=== PATIENT | male | born 1940 | race Two or more races ===

== ENCOUNTER 2025-02-15 02:30 | Inpatient (IN) | payer MEDICARE ==
[2025-02-15] VITALS (12 sets, daily range): BP systolic 93–160; BP diastolic 56–75; TEMP 97.3–97.8; O2SAT 98–99
[~2025-02-15] VITALS: Ht 172.7 cm; Wt 60.8 kg
[2025-02-15 03:51] LABS: CALCIUM, SERUM 8.8 mg/dL (8.5-10.1); CREATININE 3.5 mg/dL (0.6-1.3); SODIUM SERUM 135.0 mmol/L (136-145)
[2025-02-15 03:56] LABS: PLATELET COUNT (AUTO) 308 K/uL (150-450); RED BLOOD CELL COUNT(AUTO) 2.74 MIL/uL (4.5-6.0); RED CELL DISTRIBUTION WIDTH 24.4 % (11.5-15.0); WHITE BLOOD COUNT (AUTO) 11.7 K/uL (4.3-11.0)
[2025-02-15 03:59] LABS: LACTIC ACID 1.6 mmol/L (0.4-2.0)
[2025-02-15 04:03] LABS: ASPARTATE AMINOTRANSFERASE 14.0 U/L (15-37); NT-PRO BNP 23454.0 pg/mL (0-125); TOTAL PROTEIN, SERUM 6.4 g/dL (6.4-8.2); UREA NITROGEN, BLOOD 87.0 mg/dL (7-18)
[2025-02-15 04:08] LABS: APPEARANCE,URINE TURBID (CLEAR); BLOOD, URINE 1+ Ery/uL (NEGATIVE); LEUKOCYTE ESTERASE ,URINE 1+ (NEGATIVE); NITRITE, URINE NEGATIVE (NEGATIVE); UGLUCOSE TRACE mg/dL (NEGATIVE)
[2025-02-15 04:11] LABS: ADD URINE CULTURE YES; SQUAMOUS EPITHELIAL CELL,UR Moderate /HPF (None Seen); URINE AMORPHOUS URATE Many /HPF (None Seen)
[2025-02-15 04:35] LABS: BASOPHILS % (MANUAL) 0 % (0.0-2.0); EOSINOPHILS % (MANUAL) 0 % (0-4); LYMPHOCYTES % (MANUAL) 6 % (16-48); MONOCYTES % (MANUAL) 5 % (0-11.0); NEUTROPHILS % (MANUAL) 89 (42-76); PLATELET ESTIMATE ADEQUATE
[2025-02-15 05:56] LABS: IRON, SERUM 9 ug/dl (50-175)
[2025-02-15] MEDS ORDERED: ONDANSETRON HCL/PF 4 MG/2 ML VIAL IVP PRN (06:30)
[2025-02-15 07:33] LABS: IRON, SERUM 8.0 ug/dl (50-175)
[2025-02-15 08:19] LABS: ASPARTATE AMINOTRANSFERASE 12.0 U/L (15-37); CALCIUM, SERUM 8.6 mg/dL (8.5-10.1); CREATININE 3.7 mg/dL (0.6-1.3); PHOSPHORUS 4.4 mg/dL (2.5-4.9); SODIUM SERUM 137.0 mmol/L (136-145); TOTAL PROTEIN, SERUM 6.0 g/dL (6.4-8.2)
[2025-02-15 08:21] LABS: PLATELET COUNT (AUTO) 292 K/uL (150-450); RED BLOOD CELL COUNT(AUTO) 2.64 MIL/uL (4.5-6.0); RED CELL DISTRIBUTION WIDTH 24.0 % (11.5-15.0); WHITE BLOOD COUNT (AUTO) 10.6 K/uL (4.3-11.0)
[2025-02-15 08:27] LABS: UREA NITROGEN, BLOOD 92.0 mg/dL (7-18)
[2025-02-15] MEDS: ACETAMINOPHEN 325 MG TABLET PO ONE (09:11)
[2025-02-15 09:12] LABS: PLATELET ESTIMATE DECREASED
[2025-02-15] MEDS: LORATADINE 10 MG TABLET PO ONE (09:12)
[2025-02-15] MEDS: PANTOPRAZOLE 40 MG VIAL IV SCH (09:13)
[2025-02-15] MEDS: PANTOPRAZOLE 40 MG TABLET.DR PO SCH (10:30)
[2025-02-15] MEDS: LACTULOSE 10 G/15 ML UDC (PYXIS) PO ONE (11:20)
[2025-02-15] MEDS: POLYETHYLENE GLYCOL 3350 17 GM POWD.PACK PO ONE (11:20)
[2025-02-15] MEDS: DOCUSATE SODIUM 100 MG CAPSULE PO SCH (11:21)
[2025-02-15] MEDS: THERAHONEY GEL 1.5 OZ TUBE TP SCH (11:31)
[2025-02-15] MEDS: HYDROCODONE/APAP 5/325MG TABLET PO PRN (12:22)
[2025-02-15] MEDS: CEFTRIAXONE 1 G in IV D5W 50 ML IV SCH (12:28)
[2025-02-15] MEDS: BISACODYL SUPP (10 MG) 10 MG/SUPP.RECT SUPP.RECT RC ONE (13:30)
[2025-02-15 13:49] LABS: APPEARANCE,URINE SLIGHTLY CLOUDY (CLEAR); BLOOD, URINE 1+ Ery/uL (NEGATIVE); LEUKOCYTE ESTERASE ,URINE 1+ (NEGATIVE); NITRITE, URINE NEGATIVE (NEGATIVE); UGLUCOSE NEGATIVE (NEGATIVE)
[2025-02-15 13:55] LABS: CREATININE, URINE 84.3 MG/DL (30.0-125.0); URINE SODIUM, RANDOM 5.0 mmol/l (40-220); URINE TOTAL PROTEIN 395.9 mg/dL (0-11.9)
[2025-02-15 14:01] LABS: YEAST,URINE Moderate /HPF (None Seen)
[2025-02-15 14:02] LABS: ADD URINE CULTURE YES; SQUAMOUS EPITHELIAL CELL,UR Few /HPF (None Seen)
[2025-02-15 14:28] LABS: EOSINOPHIL,URINE None Seen
[2025-02-15] MEDS: IV NS 0.9% 1,000 ML IV PRN (15:38)
[2025-02-15] MEDS: SENNOSIDES 8.6 MG TABLET PO SCH (21:17)
[2025-02-16 00:30] VITALS: BP 148/64; TEMP 97.7
[2025-02-16 04:00] VITALS: BP 140/68; TEMP 97.3; O2SAT 100
[2025-02-16 06:41] LABS: PLATELET COUNT (AUTO) 280 K/uL (150-450); RED BLOOD CELL COUNT(AUTO) 3.95 MIL/uL (4.5-6.0); RED CELL DISTRIBUTION WIDTH 24.1 % (11.5-15.0); WHITE BLOOD COUNT (AUTO) 12.9 K/uL (4.3-11.0)
[2025-02-16 07:02] LABS: ASPARTATE AMINOTRANSFERASE 15.0 U/L (15-37); CALCIUM, SERUM 8.4 mg/dL (8.5-10.1); CREATININE 3.3 mg/dL (0.6-1.3); PHOSPHORUS 4.0 mg/dL (2.5-4.9); SODIUM SERUM 137.0 mmol/L (136-145); TOTAL PROTEIN, SERUM 6.0 g/dL (6.4-8.2); UREA NITROGEN, BLOOD 72.0 mg/dL (7-18)
[2025-02-16 07:14] LABS: CREATINE KINASE, TOTAL 58.0 U/L (39-308)
[2025-02-16 08:00] VITALS: BP 151/53; TEMP 97.3; O2SAT 100
[2025-02-16] MEDS: FLUCONAZOLE (100 MG) 100 MG TABLET PO SCH (11:35)
[2025-02-16 12:00] VITALS: BP 154/55; TEMP 97.4; O2SAT 100
[2025-02-16] MEDS: BISACODYL (5 MG) 5 MG TABLET.DR PO PRN (13:58)
[2025-02-16 16:00] VITALS: BP 150/72; TEMP 98.1; O2SAT 100
[2025-02-16 20:00] VITALS: BP 153/64; TEMP 98.4; O2SAT 100
[2025-02-16] MEDS: POTASSIUM CHLORIDE 20 MEQ TAB.PRT.SR PO SCH (21:26)
[2025-02-17 04:00] VITALS: BP 134/104; TEMP 98.2; O2SAT 100
[2025-02-17 07:21] LABS: PLATELET COUNT (AUTO) 254 K/uL (150-450); RED BLOOD CELL COUNT(AUTO) 3.74 MIL/uL (4.5-6.0); RED CELL DISTRIBUTION WIDTH 24.6 % (11.5-15.0); WHITE BLOOD COUNT (AUTO) 10.7 K/uL (4.3-11.0)
[2025-02-17 07:25] LABS: CALCIUM, SERUM 8.1 mg/dL (8.5-10.1); CREATININE 2.8 mg/dL (0.6-1.3); SODIUM SERUM 139.0 mmol/L (136-145); UREA NITROGEN, BLOOD 57.0 mg/dL (7-18)
[2025-02-17 08:07] LABS: PTH, INTACT 45 pg/mL (15-65)
[2025-02-17] MEDS: ACETAMINOPHEN 325 MG TABLET PO PRN (09:55)
[2025-02-17 12:00] VITALS: BP 126/57; TEMP 98.2; O2SAT 94
[2025-02-17] MEDS: ENSURE ENLIVE 237 ML LIQUID (VANILLA) PO SCH (15:21)
[2025-02-17] MEDS ORDERED: Z GUARD REMEDY 4 OZ OINT TP PRN (16:00)
[2025-02-17 20:00] VITALS: BP 152/69; TEMP 97.7; O2SAT 99
[2025-02-18 06:00] VITALS: BP 155/71; TEMP 97.3; O2SAT 100
[2025-02-18 07:45] LABS: PLATELET COUNT (AUTO) 300 K/uL (150-450); RED BLOOD CELL COUNT(AUTO) 3.70 MIL/uL (4.5-6.0); RED CELL DISTRIBUTION WIDTH 25.1 % (11.5-15.0); WHITE BLOOD COUNT (AUTO) 12.8 K/uL (4.3-11.0)
[2025-02-18 08:00] VITALS: BP 105/75; TEMP 97.6; O2SAT 99
[2025-02-18] MEDS ORDERED: PANT40TA49 PO (13:14)
[2025-02-18] MEDS ORDERED: BISA-79 PO (13:14)
[2025-02-18] MEDS ORDERED: COLL30OI TP (13:14)
[2025-02-18] MEDS ORDERED: SULF1TAB47 PO (13:14)
[2025-02-18] MEDS ORDERED: SENN-175 PO (13:14)
[2025-02-18] MEDS ORDERED: ACET325T53 PO (13:14)
[2025-02-18] MEDS ORDERED: LACT-246 PO (13:14)
[2025-02-18] MEDS ORDERED: DOCU100C36 PO (13:14)
[2025-02-18 16:00] VITALS: BP 156/86; TEMP 98.1; O2SAT 99
== END 2025-02-18 19:15 | disposition hospice, home (50) | DRG 377 ==
LOC: ER 02:33 → MEDSG1 04:18
PROVIDERS: ADMIT Nurse Practitioner Acute Care; ATTEND Nurse Practitioner Acute Care
PROC: 30233N1 Transfusion of Nonautologous Red Blood Cells into Peripheral Vein, Percutaneous Approach (ICD-10-PCS; principal; 2025-02-15)
DX: K92.2 Gastrointestinal hemorrhage, unspecified (principal); I21.A1 Myocardial infarction type 2; N17.0 Acute kidney failure with tubular necrosis; I13.0 Hypertensive heart and chronic kidney disease with heart failure and stage 1 through stage 4 chronic kidney disease, or unspecified chronic kidney disease; N39.0 Urinary tract infection, site not specified; E44.0 Moderate protein-calorie malnutrition; N13.8 Other obstructive and reflux uropathy; C15.9 Malignant neoplasm of esophagus, unspecified; Z66 Do not resuscitate; D50.0 Iron deficiency anemia secondary to blood loss (chronic); I50.9 Heart failure, unspecified; N18.9 Chronic kidney disease, unspecified; E78.5 Hyperlipidemia, unspecified; E88.09 Other disorders of plasma-protein metabolism, not elsewhere classified; I25.10 Atherosclerotic heart disease of native coronary artery without angina pectoris; Z85.01 Personal history of malignant neoplasm of esophagus; Z95.1 Presence of aortocoronary bypass graft; I25.2 Old myocardial infarction; R53.1 Weakness; R73.9 Hyperglycemia, unspecified; E86.9 Volume depletion, unspecified; B96.89 Other specified bacterial agents as the cause of diseases classified elsewhere; Z51.5 Encounter for palliative care
CPT/HCPCS: 36415; 71045-TC; 76770-TC; 80048-TC; 80053-TC; 80076-TC; 81001; 82550-TC; 82570-TC; 83540-TC; 83605-TC; 83690-TC; 83735-TC; 83880; 83970; 84100-TC; 84155; 84165; 84300-TC; 84484-TC; 85025-TC; 85027-TC; 86850-TC; 87040-TC; 87086-TC; 87186-TC; 92526; 92611; 93307-TC; 97112-TC; 97530-TC; A4223; G0378; J0696; J1200; J2470; J3490; J7030; J7050; J7060; P9016